=== PATIENT | male | born 1975 | race Caucasian/White ===

== ENCOUNTER 2024-08-31 17:34 | Emergency (ER) | payer OTHER, SELFPAY ==
[2024-08-31 17:40] VITALS: BP 139/93; PULSE 75; TEMP 36.8; O2SAT 96; BMI 33.5
--- NOTE | 2024-08-31 17:47 | CT_ITS ---
The [address] [address] Patient Name: MYLES CRAIG MRN: [facility]:[id number] date: 1975 Sex: M Assigned Patient Location: ER Current Patient Location: ER Accession/Order Number: [id number] Exam Date: 08/31/2024 18:01 Report Date: 08/31/2024 18:18 At the request of: HSERRON WHITFIELD Procedure: CT head/brain wo con EXAM: CT head/brain wo con HISTORY: fall COMPARISON: None. TECHNIQUE: Axial CT scans through the head were obtained without IV contrast administration. Dose reduction techniques were achieved by using: automated exposure control and/or adjustment of mA and /or kV according to patient size and/or use of iterative reconstruction technique. FINDINGS: There is no acute intracranial hemorrhage or abnormal extra-axial fluid collection. No mass effect or midline shift is seen. There is no evidence of large acute territorial infarction. There is no hydrocephalus. To the limit of CT, the posterior fossa appears unremarkable. The calvaria and extra cranial soft tissues are unremarkable. The visualized orbits show no abnormality. The visualized paranasal sinuses show no air-fluid level. Mastoid air cells are clear. CT/CT head/brain wo con IMPRESSION: No acute intracranial process. Electronically authenticated by: EVELYN NEW Date: 08/31/2024 18:18
--- NOTE | 2024-08-31 17:47 | CT_ITS ---
The [address] [address] Patient Name: MYLES CRAIG MRN: [facility]:[id number] date: 1975 Sex: M Assigned Patient Location: ER Current Patient Location: [facility] Accession/Order Number: [id number] Exam Date: 08/31/2024 18:01 Report Date: 08/31/2024 19:03 At the request of: SHERRON WHITFIELD Procedure: CT cervical spine wo con EXAMINATION: CT cervical spine wo con HISTORY: fell, hit head, neck pain COMPARISON: None. TECHNIQUE: CT head without intravenous contrast. Dose reduction techniques were achieved by using: automated exposure control and/or adjustment of mA and /or kV according to patient size and/or use of iterative reconstruction technique. FINDINGS: Straightening of the cervical spine. Vertebral bodies are anatomically aligned. Vertebral body heights are preserved. There is no evidence for acute fracture. There is no evidence for acute subluxation. Multilevel degenerative disc disease and facet arthropathy. There are varying degrees of disc height loss, osteophytes, and facet arthropathy. Prevertebral soft tissues normal in thickness. No spinal canal stenosis at any level. No airspace infiltrates in the included lung apices. CT/CT cervical spine wo con IMPRESSION: Negative for acute fracture or dislocation in the cervical spine. Electronically authenticated by: JUAN MIRZA Date: 08/31/2024 19:03
--- NOTE | 2024-08-31 17:48 | ED_ITS ---
HPI HPI - Head Injury General Chief complaint: Head Injury Stated complaint: FALL-HEAD INJURY Time Seen by Provider: 08/31/24 17:44 History of Present Illness HPI Narrative: 49-year-old male presents to the emergency department for an injury to his head as well as neck pain. At 1:00 this afternoon, almost 5 hours ago, he slipped on ice and fell and hit the back of his head. No LOC or vomiting or other injury except for some soreness in his left shoulder. Related Data Home Medications ?Medication ?Instructions ?Recorded ?Confirmed No Known Home Medications 08/31/24 08/31/24 Allergies Allergy/AdvReac Type Severity Reaction Status Date / Time Sulfa (Sulfonamide AdvReac Severe Hives Verified 08/31/24 17:40 Antibiotics) Opioid HPI Opioid Management Most Recent Pain and Opioid Data: Last Pain Scale 5 08/31/24 19:44 08/31/24 Review of Systems ROS Narrative A ten point review of systems is negative except as noted above. PFSH PFSH Social History Little interest or pleasure in doing things: not at all Feeling down, depressed, or hopeless: not at all Exam Narrative Exam Narrative: Nurses note and vital signs reviewed and patient is not hypoxic. General: The patient appears well and in no apparent distress. Patient is resting comfortably on cart. Skin: Warm, dry, no pallor noted. There is no rash noted. Head: Normocephalic, no hematomas or lacerations present. He has diffuse tenderness in his posterior neck. Eye: Normal conjunctiva, no drainage Ears, Nose, Mouth, and Throat: oral mucosa is moist. Nares patent. Cardiovascular: Regular Rate and Rhythm Respiratory: Patient is in no distress, no accessory muscle use, lungs are clear to auscultation, no wheezing, rales or rhonchi Back: Lumbar and thoracic spines are nontender GI: Soft and nontender Musculoskeletal: The patient has no evidence of calf tenderness, no pitting edema, symmetrical pulses noted bilaterally Neurological: A&O, normal speech Psychiatric: Cooperative Constitutional Vital Signs, click to edit/add: Last Vital Signs Temp 98.2 F 08/31/24 17:40 Pulse 66 08/31/24 19:14 Resp 18 08/31/24 19:14 BP 146/94 H 08/31/24 19:14 Pulse Ox 96 08/31/24 19:14 O2 Del Method Room Air 08/31/24 17:40 Course Vital Signs Vital signs: Vital Signs Temperature 98.2 F 08/31/24 17:40 Pulse Rate 75 08/31/24 17:40 Respiratory Rate 18 08/31/24 17:40 Blood Pressure 139/93 H 08/31/24 17:40 Pulse Oximetry 96 08/31/24 17:40 Oxygen Delivery Method Room Air 08/31/24 17:40 Temperature 98.2 F 08/31/24 17:40 Pulse Rate 66 08/31/24 19:14 Respiratory Rate 18 08/31/24 19:14 Blood Pressure 146/94 H 08/31/24 19:14 Pulse Oximetry 96 08/31/24 19:14 Oxygen Delivery Method Room Air 08/31/24 17:40 Discharge Plan Discharge Chief Complaint: Head Injury Clinical Impression: Closed head injury, Cervical strain, acute Patient Disposition: Home, Self-Care Time of Disposition Decision: 19:19 Condition: Good Prescriptions / Home Meds: No Action No Known Home Medications Print Language: Cook Islander Instructions: Cervical Strain (ED), Head Injury (ED) Referrals: Physician,Non-Staff, MD [Physician] - 1 week Discharge Date/Time: 08/31/24 19:48
[2024-08-31 19:14] VITALS: BP 146/94; PULSE 66; O2SAT 96
--- NOTE | 2024-08-31 19:21 | ED.HEATRA1 ---
HPI HPI - Head Injury General Chief complaint: Head Injury Stated complaint: FALL-HEAD INJURY Time Seen by Provider: 08/31/24 17:44 History of Present Illness HPI Narrative: This 49-year-old male signed out to me at shift change. He presents for evaluation of a head injury after falling on the ice earlier today. There is no visible hematoma or laceration or other notable deformity. CT scan of the brain and cervical spine which are included in the body of this report do not show any acute findings. Patient was seen and evaluated. He complains of a moderate to severe headache. He will be medicated with a dose of Zofran and [place] prior to discharge and given 2 to take home. He was instructed to rest, drink plenty of fluids and return to the emergency department for any severe headache or neurologic symptoms. Related Data Home Medications ?Medication ?Instructions ?Recorded ?Confirmed No Known Home Medications 08/31/24 08/31/24 Allergies Allergy/AdvReac Type Severity Reaction Status Date / Time Sulfa (Sulfonamide AdvReac Severe Hives Verified 08/31/24 17:40 Antibiotics) Opioid HPI Opioid Management Most Recent Pain and Opioid Data: No Data to Display PFSH PFSH Social History Little interest or pleasure in doing things: not at all Feeling down, depressed, or hopeless: not at all Exam Constitutional Vital Signs, click to edit/add: Last Vital Signs Temp 98.2 F 08/31/24 17:40 Pulse 66 08/31/24 19:14 Resp 18 08/31/24 19:14 BP 146/94 H 08/31/24 19:14 Pulse Ox 96 08/31/24 19:14 O2 Del Method Room Air 08/31/24 17:40 Course Vital Signs Vital signs: Vital Signs Temperature 98.2 F 08/31/24 17:40 Pulse Rate 75 08/31/24 17:40 Respiratory Rate 18 08/31/24 17:40 Blood Pressure 139/93 H 08/31/24 17:40 Pulse Oximetry 96 08/31/24 17:40 Oxygen Delivery Method Room Air 08/31/24 17:40 Temperature 98.2 F 08/31/24 17:40 Pulse Rate 66 08/31/24 19:14 Respiratory Rate 18 08/31/24 19:14 Blood Pressure 146/94 H 08/31/24 19:14 Pulse Oximetry 96 08/31/24 19:14 Oxygen Delivery Method Room Air 08/31/24 17:40 MDM - Head Injury MDM Narrative Medical decision making narrative: [place] [address] CT Scan Report Signed Patient: MYLES CRAIG MR#: [id number] : 1975 Acct:[id number] Age/Sex: 49 / M ADM Date: 08/31/24 Loc: ER Attending Dr: Ordering Physician: Sherron Whitfield M.D. Date of Service: 08/31/24 Procedure(s): CT cervical spine wo con Accession Number(s): [id number] cc: Samuel Luu ND~ The [place] [address] Patient Name: MYLES CRAIG MRN: [id number] date: 1975 Sex: M Assigned Patient Location: ER Current Patient Location: ED.MAIN Accession/Order Number: [id number] Exam Date: 08/31/2024 18:01 Report Date: 08/31/2024 19:03 At the request of: SHERRON WHITFIELD Procedure: CT cervical spine wo con EXAMINATION: CT cervical spine wo con HISTORY: fell, hit head, neck pain COMPARISON: None. TECHNIQUE: CT head without intravenous contrast. Dose reduction techniques were achieved by using: automated exposure control and/or adjustment of mA and /or kV according to patient size and/or use of iterative reconstruction technique. FINDINGS: Straightening of the cervical spine. Vertebral bodies are anatomically aligned. Vertebral body heights are preserved. There is no evidence for acute fracture. There is no evidence for acute subluxation. Multilevel degenerative disc disease and facet arthropathy. There are varying degrees of disc height loss, osteophytes, and facet arthropathy. Prevertebral soft tissues normal in thickness. No spinal canal stenosis at any level. No airspace infiltrates in the included lung apices. CT/CT cervical spine wo con IMPRESSION: Negative for acute fracture or dislocation in the cervical spine. Electronically authenticated by: JUAN MIRZA Date: 08/31/2024 19:03 [address] [place] [id number] CT Scan Report Signed Patient: MYLES CRAIG#: [id number] : 1975 Acct:[id number] Age/Sex: 49 / M ADM Date: 08/31/24 Loc: ER Attending Dr: Ordering Physician: Sherron Whitfield M.D. Date of Service: 08/31/24 Procedure(s): CT head/brain wo con Accession Number(s): [id number] cc: PhysicianNonLaurenStaff Kathy~ The [place] [id number] Patient Name: MYLES CRAIG MRN: [id number] date: 1975 Sex: M Assigned Patient Location: ER Current Patient Location: ER Accession/Order Number: [id number] Exam Date: 08/31/2024 18:01 Report Date: 08/31/2024 18:18 At the request of: SHERRON WHITFIELD Procedure: CT head/brain wo con EXAM: CT head/brain wo con HISTORY: fall COMPARISON: None. TECHNIQUE: Axial CT scans through the head were obtained without IV contrast administration. Dose reduction techniques were achieved by using: automated exposure control and/or adjustment of mA and /or kV according to patient size and/or use of iterative reconstruction technique. FINDINGS: There is no acute intracranial hemorrhage or abnormal extra-axial fluid collection. No mass effect or midline shift is seen. There is no evidence of large acute territorial infarction. There is no hydrocephalus. To the limit of CT, the posterior fossa appears unremarkable. The calvaria and extra cranial soft tissues are unremarkable. The visualized orbits show no abnormality. The visualized paranasal sinuses show no air-fluid level. Mastoid air cells are clear. CT/CT head/brain wo con IMPRESSION: No acute intracranial process. Discharge Plan Discharge Chief Complaint: Head Injury Clinical Impression: Closed head injury, Cervical strain, acute Patient Disposition: Home, Self-Care Time of Disposition Decision: 19:19 Condition: Good Prescriptions / Home Meds: No Action No Known Home Medications Print Language: Hebrew Instructions: Cervical Strain (ED), Head Injury (ED) Referrals: Physician,Non-Staff, [Physician] - 1 week
[2024-08-31] MEDS: HYDROCODONE/ACET 5-325 MG TABLET 2 TAB PO (19:44)
[2024-08-31] MEDS: ONDANSETRON 4 MG RAPDIS TABLET SL (19:44)
[2024-08-31] MEDS: HYDROCODONE/ACET 5-325 MG TABLET 1 TAB PO (19:44)
== END 2024-08-31 19:48 | disposition home or self-care (01) ==
PROVIDERS: Emergency Provider Emergency Medicine; PCP Student in an Organized Health Care Education/Training Program
DX: S09.8XXA Other specified injuries of head, initial encounter (principal); S16.1XXA Strain of muscle, fascia and tendon at neck level, initial encounter; W00.0XXA Fall on same level due to ice and snow, initial encounter
CPT/HCPCS: 70450; 72125; 99284; Q0162